=== PATIENT | female | born 1960 | race Caucasian/White ===

== ENCOUNTER 2017-08-25 08:09 | Outpatient (CLI) | payer OTHER ==
--- NOTE | 2017-08-26 16:20 | Mammography Report ---
DIGITAL SCREENING MAMMOGRAM: 08/25/2017 CLINICAL INDICATION: A 56-year-old with family history of breast cancer, for screening. COMPARISON: 03/2016, 10/2013, 05/2010, 06/2008. The patient initially presented on 08/25/2017, and returned on 08/26/2017 for an additional projection due to technical factors. TECHNIQUE: Routine CC and MLO projections were obtained of the breasts. FINDINGS: The breasts demonstrate heterogeneously dense fibroglandular parenchyma bilaterally. Coarse and punctate, typically benign calcifications are present. No suspicious masses, clustered microcalcifications, or regions of architectural distortion are identified. IMPRESSION: BENIGN FINDINGS. RECOMMENDATION: Routine annual screening unless otherwise clinically indicated. BIRADS CATEGORY 2 - BENIGN FINDINGS. STANDARD QUALIFYING STATEMENTS: 1. This examination was reviewed with the aid of Computer-Aided Detection (CAD) . 2. A negative or benign imaging report should not delay biopsy if clinically suspicious findings are present. Consider surgical consultation if warranted. More than 5 % of cancers are not identified by imaging. 3. Dense breasts may obscure an underlying neoplasm. TD: 08/26/2017 16:18 UMANG
== END 2017-08-25 08:10 | disposition home or self-care (01) ==
LOC: DI 08:09
PROVIDERS: ATTEND Family Medicine
DX: Z12.31 Encounter for screening mammogram for malignant neoplasm of breast (principal); Z80.3 Family history of malignant neoplasm of breast
CPT/HCPCS: 77067

== ENCOUNTER 2017-10-09 20:41 | Emergency (ER) | payer OTHER ==
--- NOTE | 2017-10-09 20:46 | ED Physician Documentation ---
PD HPI UPPER EXT INJURY - Stated complaint Stated Complaint: R FINGER INJ - History obtained from History obtained from: Patient - History of Present Illness Location: Right, Finger (right fourth finger (ring finger)) Where injury occurred: Bar Timing - onset: Today Timing - details: Abrupt onset Pain level now: 5 Improved by: Rest Worsened by: Moving, Palpating Associated symptoms: Swelling, Discolored (bruised) Recently seen: Not recently seen - Additonal information Additional information: this afternoon was seated at a bar at a restaurant, was asked to move down a seat and when she did so, the ring on her right ring finger caught on a fixture on the bar, causing sudden pain and swelling of the digit. denies other injury. she is right hand dominant Review of Systems Musculoskeletal: reports: Extremity pain, Extremity swelling Neurologic: denies: Focal weakness, Numbness PD PAST MEDICAL HISTORY - Past Medical History Past Medical History: Yes Cardiovascular: Hypertension - Present Medications Home Medications: Ambulatory Orders Medication Instructions Recorded Confirmed Hydrocodone/Acetaminophen 1 - 2 each PO Q6HR PRN #14 tablet 10/09/17 [Hydrocodon-Acetaminophen 5-325] Lisinopril 10 mg PO DAILY 10/09/17 10/09/17 Omeprazole [PriLOSEC] 20 mg PO DAILY 10/09/17 10/09/17 - Allergies Allergies/Adverse Reactions: Allergies Allergy/AdvReac Type Severity Reaction Status Date / Time No Known Drug Allergies Allergy Verified 10/09/17 20:49 PD ED PE NORMAL - Vitals Vital signs reviewed: Yes - General General: Alert and oriented X 3, No acute distress, Well developed/nourished - Neuro Neuro: No motor deficit, No sensory deficit PD ED PE EXPANDED - Extremities Extremities: Tenderness, Limited ROM, Swelling, Bruising, Other (tenderness, swelling, bruising, limited ROM left fourth (ring) finger at proximal phalanx and PIP joint) Results - Vitals Vitals: Vital Signs - 24 hr 10/09/17 10/09/17 20:43 22:47 Temperature 37.2 C 36.6 C Heart Rate 96 82 Respiratory 16 12 Rate Blood Pressure 172/93 H 171/107 H O2 Saturation 94 100 Oxygen O2 Source Room air - Rads (name of study) right fourth digit xrays Radiology: Prelim report reviewed, See rad report PD MEDICAL DECISION MAKING - ED course Complexity details: reviewed results, re-evaluated patient, considered differential, d/w patient Departure - Departure Disposition: 01 Home, Self Care Clinical Impression: Fracture, finger Condition: Good Instructions: ED Fx Finger Closed Follow-Up: Hugo Fernandez DO [Primary Care Provider] - Fab Morgan MD [Provider Admit Priv/Credential] - Within 1 week Prescriptions: Hydrocodone/Acetaminophen [Hydrocodon-Acetaminophen 5-325] 1 - 2 each PO Q6HR PRN #14 tablet PRN Reason: Pain Discharge Date/Time: 10/09/17 22:53
--- NOTE | 2017-10-09 21:20 | XRAY Preliminary Report ---
Exam: XR FINGER(S) RT IMPRESSION: 1. Acute transverse extra-articular fracture at the base of the right fourth proximal phalanx with mi nimal dorsal angulation. 2. No dislocation. 3. Dorsomedial right hand swelling centered at the fourth MCP joint. [facility] SITE ID: [id number]
--- NOTE | 2017-10-09 21:27 | XRAY Report ---
EXAM: RIGHT FOURTH DIGIT RADIOGRAPHY. EXAM DATE: 10/09/2017 09:06 PM. CLINICAL HISTORY: Right ring finger swollen and discolored. COMPARISON: None. TECHNIQUE: 3 views. FINDINGS: Bones: Acute, extra-articular transverse fracture at the proximal right fourth phalanx metadiaphyseal region with minimal dorsal angulation. The remaining osseous structures are intact and normal. Joints: Normal. No subluxations. Soft Tissues: Dorsal medial right hand swelling centered at the fourth MCP joint. IMPRESSION: 1. Acute transverse extra-articular fracture at the base of the right fourth proximal phalanx with mi nimal dorsal angulation. 2. No dislocation. 3. Dorsomedial right hand swelling centered at the fourth MCP joint. [facility] Referring Provider Line: [phone] SITE ID: [id number]
[2017-10-09] MEDS ORDERED: HYDROcod/ACET 5/325 Prepack 4 PO STA (22:29)
[2017-10-09 22:48] VITALS: BP 171/107
== END 2017-10-09 22:53 | disposition home or self-care (01) ==
LOC: ED 20:41
DX: S62.642A Nondisplaced fracture of proximal phalanx of right middle finger, initial encounter for closed fracture (principal); W23.0XXA Caught, crushed, jammed, or pinched between moving objects, initial encounter; Y92.511 Restaurant or cafe as the place of occurrence of the external cause; I10 Essential (primary) hypertension
CPT/HCPCS: 73140; 99283

== ENCOUNTER 2017-10-26 11:32 | Outpatient (CLI) | payer OTHER ==
--- NOTE | 2017-10-27 09:45 | XRAY Report ---
Procedure Date: 10/26/2017 Accession Number: [id number] / [id number] Procedure: XR - Finger(s) RT CPT Code: FULL RESULT: EXAM: RIGHT FOURTH DIGIT RADIOGRAPHY EXAM DATE: 10/26/2017 12:21 PM. CLINICAL HISTORY: FX R 4TH PHALANX. COMPARISON: None. TECHNIQUE: 3 views. FINDINGS: Bones: Continued fracture healing of the proximal phalangeal base fracture with increased callus formation and less distinct fracture line. No new fractures are seen. Joints: Normal. No subluxations. Soft Tissues: Decreased soft tissue swelling. IMPRESSION: 1. Progressive fracture healing of the fourth proximal phalangeal base fracture without change in alignment. [facility]
== END 2017-10-26 11:33 | disposition home or self-care (01) ==
LOC: DI 11:32
PROVIDERS: ATTEND Family Medicine
DX: S62.614D Displaced fracture of proximal phalanx of right ring finger, subsequent encounter for fracture with routine healing (principal)
CPT/HCPCS: 73140

== ENCOUNTER 2018-02-03 09:26 | Outpatient (CLI) | payer OTHER ==
--- NOTE | 2018-02-03 16:51 | XRAY Report ---
Reason: FOOSH injury January 13, 2018 Procedure Date: 02/03/2018 Accession Number: [id number] / [id number] Procedure: XRN - Wrist 3 View RT CPT Code: FULL RESULT: EXAM: RIGHT WRIST RADIOGRAPHY EXAM DATE: 02/03/2018 09:44 AM. CLINICAL HISTORY: FOOSH injury January 13, 2018. COMPARISON: None. TECHNIQUE: 3 views. FINDINGS: Bones: There is a nondisplaced fracture of the scaphoid Joints: No subluxations. Soft Tissues: No soft tissue swelling. IMPRESSION: Scaphoid fracture [facility]
== END 2018-02-03 09:27 | disposition home or self-care (01) ==
LOC: DI.N 09:26
PROVIDERS: ATTEND Physician Assistant
DX: S62.001A Unspecified fracture of navicular [scaphoid] bone of right wrist, initial encounter for closed fracture (principal)

== ENCOUNTER 2019-03-23 14:03 | Outpatient (CLI) | payer OTHER ==
--- NOTE | 2019-03-24 11:37 | Mammography Report ---
Reason: SCREENING MAMMOGRAM Procedure Date: 03/23/2019 Accession Number: [id number] / [id number] Procedure: SUMANTH - Screening Mammo Dig Bilat CPT Code: Final Report FULL RESULT: EXAM: Screening Mammo Dig Bilat DATE: 03/23/2019 2:33 PM CLINICAL HISTORY: Routine screening. No reported personal history of breast cancer. Family history breast cancer in sister at age 45. TECHNIQUE: (B) - Bilateral CC and MLO views were obtained. COMPARISON: 08/25/2017 through 10/09/2013. PARENCHYMAL PATTERN: (A) - The breasts demonstrate scattered fibroglandular densities bilaterally. FINDINGS: Bilateral breasts: There are no suspicious masses, calcifications, or areas of distortion. IMPRESSION: Negative examination. BI-RADS category 1. RECOMMENDATION: (ANNUAL) - Recommend routine annual screening mammography. BI-RADS CATEGORY: (1) - Negative. STANDARD QUALIFYING STATEMENTS: 1. This examination was not reviewed with the aid of Computer-Aided Detection (CAD). 2. A negative or benign imaging report should not preclude biopsy if clinically suspicious findings are present. 3. Dense breasts may obscure an underlying neoplasm. 4. This examination was reviewed without the aid of 3D breast imaging (tomosynthesis).
== END 2019-03-23 14:04 | disposition home or self-care (01) ==
LOC: DI 14:03
PROVIDERS: ATTEND Family Medicine
DX: Z12.31 Encounter for screening mammogram for malignant neoplasm of breast (principal); Z80.3 Family history of malignant neoplasm of breast
CPT/HCPCS: 77067

== ENCOUNTER 2019-06-29 08:40 | Day surgery (SDC) | payer OTHER ==
[2019-06-29] MEDS ORDERED: LACTATED RINGERS 1,000 ML IV ONE (09:12)
[2019-06-29] MEDS ORDERED: MIDAZOLAM 2 MG/2 ML VIAL IVP ONE (10:21)
[2019-06-29] MEDS ORDERED: fentaNYL 250 MCG/5 ML VIAL IVP ONE (10:21)
[2019-06-29] MEDS ORDERED: fentaNYL 100 MCG/2 ML VIAL IVP ONE (10:21)
[2019-06-29 11:17] VITALS: BP 120/65
== END 2019-06-29 08:41 | disposition home or self-care (01) ==
LOC: SDS 08:40
PROVIDERS: ATTEND Surgery
PROC: 0DBN8ZZ Excision of Sigmoid Colon, Via Natural or Artificial Opening Endoscopic (ICD-10-PCS; 2019-06-29)
PROC: 0DBP8ZZ Excision of Rectum, Via Natural or Artificial Opening Endoscopic (ICD-10-PCS; 2019-06-29)
PROC: 0DBH8ZZ Excision of Cecum, Via Natural or Artificial Opening Endoscopic (ICD-10-PCS; principal; 2019-06-29 10:15)
DX: Z12.11 Encounter for screening for malignant neoplasm of colon (principal); D12.5 Benign neoplasm of sigmoid colon; D12.0 Benign neoplasm of cecum; K62.1 Rectal polyp; K64.8 Other hemorrhoids; K64.4 Residual hemorrhoidal skin tags; K63.89 Other specified diseases of intestine; I10 Essential (primary) hypertension; K21.9 Gastro-esophageal reflux disease without esophagitis
CPT/HCPCS: 45380; J3010; J7120

== ENCOUNTER 2022-03-18 09:18 | Outpatient (CLI) | payer OTHER ==
--- NOTE | 2022-03-18 16:25 | Mammography Report ---
BILATERAL DIGITAL SCREENING MAMMOGRAM 3D/2D: 03/18/2022 CLINICAL: Routine screening. Comparison is made to exams dated: 03/23/2019 mammogram, 08/25/2017 mammogram, 03/10/2016 mammogram, ultrasound, 10/09/2013 mammogram - [facility], and 11/12/2011 mammogram - [facility]. There are scattered areas of fibroglandular density in both breasts (category b / 25%-50% glandular t issue). No significant masses, calcifications, or other findings are seen in either breast. There has been no significant interval change. IMPRESSION: NEGATIVE There is no mammographic evidence of malignancy. A 1 year screening mammogram is recommended. Based on the Tyrer Cuzick model (a risk assessment model) the patients lifetime risk is 11.8% and he r 10 year risk is 5.3%. According to the ACR, ACS, and NCCN guidelines, an annual breast MRI exam vic ng with mammogram is recommended if the patients lifetime risk is 20% or greater. This exam was interpreted at Station ID: [id number]. NOTE: For mammograms, a report in lay terms will be sent to the patient. Approximately 15% of breast malignancies will not be visualized mammographically. In the management of a palpable breast mass, a negative mammogram must not discourage biopsy of a clinically suspicious lesion. Electronically Signed By: Don gaitan/jake:03/18/2022 11:50:00 ACR BI-RADS Category 1: Negative 3341F PARENCHYMAL PATTERN: (A) - The breast(s) demonstrate(s) scattered fibroglandular densities. BI-RADS CATEGORY: (1) - 1 RECOMMENDATION: (ANNUAL) - Recommend routine annual screening mammography. [id number] 1 year screening LATERALITY: (B)
== END 2022-03-18 09:19 | disposition home or self-care (01) ==
LOC: DI.N 09:18
PROVIDERS: ATTEND Family Medicine
DX: Z12.31 Encounter for screening mammogram for malignant neoplasm of breast (principal)

== ENCOUNTER 2022-05-20 12:37 | Outpatient (CLI) | payer OTHER ==
--- NOTE | 2022-05-20 18:51 | XRAY Report ---
PROCEDURE: Shoulder 2 View RT INDICATIONS: RIGHT SHOULDER PAIN TECHNIQUE: 2 views of the shoulder were acquired. COMPARISON: None. FINDINGS: Bones: No fractures or dislocations. No suspicious bony lesions. Visualized ribs appear intact. Soft tissues: No suspicious soft tissue calcifications. IMPRESSION: Normal right shoulder radiographs Reviewed by: Jose Cruz Nice MD on 05/20/2022 5:49 PM [place] Approved by: Jose Cruz Nice MD on 05/20/2022 5:49 PM [place] Station ID: [id number]
== END 2022-05-20 12:38 | disposition home or self-care (01) ==
LOC: DI 12:37
PROVIDERS: ATTEND Student in an Organized Health Care Education/Training Program
DX: M25.511 Pain in right shoulder (principal)

== ENCOUNTER 2023-07-22 10:42 | Emergency (ER) | payer OTHER ==
[2023-07-22 11:17] LABS: BASOPHILS # (AUTO) 0.1 10^3/uL (0.0-0.1); BASOPHILS % (AUTO) 0.9 %; EOSINOPHILS % (AUTO) 0.7 %; HCT - HEMATOCRIT 41.9 % (37.0-47.0); HGB - HEMOGLOBIN 14.2 g/dL (12.0-16.0); LYMPHOCYTES # (AUTO) 1.4 10^3/uL (1.5-3.5); LYMPHOCYTES % (AUTO) 25.1 %; MEAN CORPUSCULAR HEMOGLOBIN 29.6 pg (27.0-31.0); MEAN CORPUSCULAR HGB CONC 33.9 g/dL (32.0-36.0); MEAN CORPUSCULAR VOLUME 87.5 fL (81.0-99.0); MONOCYTES # (AUTO) 0.7 10^3/uL (0.0-1.0); MONOCYTES % (AUTO) 12.5 %; NEUTROPHILS # (AUTO) 3.4 10^3/uL (1.5-6.6); NEUTROPHILS % (AUTO) 60.4 %; PLT - PLATELET COUNT 352 10^3/uL (130-450); RED BLOOD COUNT 4.79 10^6/uL (4.20-5.40); RED CELL DISTRIBUTION WIDTH 12.2 % (12.0-15.0); WHITE BLOOD COUNT 5.5 x10^3/uL (4.8-10.8)
[2023-07-22 11:38] LABS: TROPONIN I HIGH SENSITIVITY < 2.3 ng/L (2.3-14.8)
[2023-07-22 11:56] LABS: ALBUMIN 4.6 g/dL (3.2-5.5); ALBUMIN/GLOBULIN RATIO 2.2 (1.0-2.2); ALKALINE PHOSPHATASE 41 IU/L (42-121); ALT ALANINE AMINOTRANSFERASE 14 IU/L (10-60); AST ASPARTATE AMINOTRANSFERASE 16 IU/L (10-42); BILIRUBIN,TOTAL 0.6 mg/dL (0.2-1.0); BUN - BLOOD UREA NITROGEN 8 mg/dL (6-20); CALCIUM 9.6 mg/dL (8.5-10.3); CARBON DIOXIDE - CO2 25 mmol/L (21-32); CHLORIDE 100 mmol/L (101-111); CREATININE 0.8 mg/dL (0.6-1.3); GFR - MDRD 72 (>89); GLUCOSE 121 mg/dL (74-104); LIPASE 20 U/L (11-82); POTASSIUM 4.4 mmol/L (3.5-4.5); SODIUM 132 mmol/L (135-145); TOTAL PROTEIN 6.7 g/dL (6.4-8.9)
--- NOTE | 2023-07-22 14:21 | CT Report ---
PROCEDURE: Head WO INDICATIONS: headache, L hand intermittent weakness TECHNIQUE: Noncontrast 4.5 mm thick angled axial sections acquired from the foramen magnum to the vertex. For r adiation dose reduction, the following was used: automated exposure control, adjustment of mA and/or kV according to patient size. COMPARISON: None. FINDINGS: Image quality: Excellent. CSF spaces: Basal cisterns are patent. No extra-axial fluid collections. Ventricles are normal in size and shape. Brain: No midline shift. No intracranial masses or hemorrhage. Carcamo-white matter interface is norm al. Mild leukoaraiosis, commonly caused by chronic small vessel ischemic disease. Age-related volume loss. Skull and face: Calvarium and visualized facial bones are intact, without suspicious lesions. Sinuses: Visualized sinuses and mastoids are clear. IMPRESSION: No acute intracranial pathology. Reviewed by: Dilshad Davis MD on 07/22/2023 2:20 PM PDT Approved by: Dilshad Davis MD on 07/22/2023 2:20 PM PDT Station ID: [id number]
[2023-07-22 14:26] VITALS: O2SAT 98
--- NOTE | 2023-07-22 14:42 | ED Physician Documentation ---
History of Present Illness - Stated complaint Stated Complaint: NAUSEA - Chief complaint Chief Complaint: Neuro - History obtained from History obtained from: Patient - Additonal information Additional information: The pt comes to the ED with CC of feeling "off". She has had nausea on and off for the past couple of months, but no vomiting. Several days ago, she had a near-syncopal episode and friends noticed that pt's limbs were "flailing" for a few seconds. No CP or SOB. No h/o seizures. Pt states she has not had an episode like that before or since. She now just has a dull headache 4/10 with slight nausea. She states she has been drinking plenty of water. No new medications. 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 HEENT: Other - Present Medications Home Medications: Ambulatory Orders Medication Instructions Recorded Confirmed Omeprazole [PriLOSEC] 20 mg PO DAILY 10/09/17 07/22/23 lisinopriL [Lisinopril] 10 mg PO DAILY 10/09/17 07/22/23 Estrogen,Con/M-Progest Acet 1 tab PO DAILY 06/28/19 07/22/23 [Prempro 0.3 mg-1.5 mg Tablet] Aspirin Chewable [[place] 81 mg PO DAILY 07/22/23 07/22/23 Aspirin] - Allergies Allergies/Adverse Reactions: Allergies Allergy/AdvReac Type Severity Reaction Status Date / Time Latex, Natural Rubber AdvReac Rash Verified 07/22/23 10:55 - Social History Does the pt smoke?: No Smoking Status: Never smoker Does the pt drink ETOH?: Yes Does the pt have substance abuse?: Yes - Immunizations Immunizations are current?: Yes - POLST Patient has POLST: No PD ED PE NORMAL - Vitals Vital signs reviewed: Yes - General General: Alert and oriented X 3, No acute distress, Well developed/nourished - HEENT HEENT: Atraumatic, PERRL, EOMI, Moist mucous membranes - Neck Neck: Supple, no meningeal sign - Cardiac Cardiac: RRR, No murmur, Strong equal pulses - Respiratory Respiratory: No respiratory distress, Clear bilaterally - Abdomen Abdomen: Soft, Non tender, Non distended - Derm Derm: Normal color, Warm and dry, No rash - Extremities Extremities: No deformity, No edema - Neuro Neuro: Alert and oriented X 3, 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 Relevant findings are: Rate: Rate (enter#) (68) Rhythm: NSR [place]: Normal Intervals: Normal MN QRS: Normal Ischemia: Normal ST segments Compare to prior EKG: Old EKG unavailable Computer interpretation: Agree with computer - Labs Labs: Laboratory Tests 07/22/23 07/22/23 07/22/23 11:11 11:11 11:11 WBC 5.5 RBC 4.79 Hgb 14.2 Hct 41.9 MCV 87.5 MCH 29.6 MCHC 33.9 RDW 12.2 Plt Count 352 MPV 9.0 Neut # (Auto) 3.4 Lymph # (Auto) 1.4 L [place] # (Auto) 0.7 Eos # (Auto) 0.0 Baso # (Auto) 0.1 Absolute Nucleated RBC 0.00 Nucleated RBC % 0.0 Sodium 132 L Potassium 4.4 Chloride 100 L Carbon Dioxide 25 Anion Gap 7.0 BUN 8 Creatinine 0.8 Estimated GFR (MDRD) 72 L Glucose 121 H Calcium 9.6 Total Bilirubin 0.6 AST 16 ALT 14 Alkaline Phosphatase 41 L Troponin I High Sens < 2.3 L Total Protein 6.7 Albumin 4.6 Globulin 2.1 Albumin/Globulin Ratio 2.2 Lipase 20 TSH 1.39 - Rads (name of study) head CT Relevant Findings:: Final report received, See rad report (nad) PD Medical Decision Making - ED course Complexity details: reviewed results, re-evaluated patient, considered differential, d/w patient ED course: The pt was worked up with labs, including CBC, ER abd panel, TSH, and troponin. She was also evaluated with head CT and EKG. The entire work-up was negative. I have d/w pt the need for follow-up with her PCP to discuss event monitoring and stress test. I am not sure what is causing her nausea or feeling of being "off", but we have discussed hydration, nutrition, and the need for close follow-up as an outpatient. We have also discussed the usual indications for return. Departure - Departure Disposition: 01 Home, Self Care Clinical Impression: Weakness Condition: Stable Instructions: ED Weakness UKO Comments: Your laboratory studies and head CT look good today. It is not clear why you have been having fatigue, loss of interest in normal activities, loss of appetite, and strange neurologic symptoms. It is concerning, as pertains to the transient visual changes and eyelid droop and hand weakness, along with the swallowing difficulties, for possible multiple sclerosis. It is important that you follow-up with your primary to discuss whether or not you should be worked up with MRI for this and see a neurologist to further evaluate this possibility. Please continue to work with your primary on your appetite changes and continue your plan to get the endoscopy and colonoscopy. Forms: PCP List Discharge Date/Time: 07/22/23 14:56
[2023-07-22 14:55] VITALS: BP 159/82
== END 2023-07-22 14:56 | disposition home or self-care (01) ==
LOC: ED 10:42
DX: R53.1 Weakness (principal); I10 Essential (primary) hypertension
CPT/HCPCS: 36415; 80053; 83690; 84443; 84484; 85025; 93005; 99283; 99284

== ENCOUNTER 2023-09-09 15:43 | Outpatient (CLI) | payer OTHER ==
--- NOTE | 2023-09-10 16:11 | MRI Report ---
PROCEDURE: MRI brain without contrast INDICATIONS: TRANSIENT NEUROLOGICAL SYMPTOMS TECHNIQUE: Multiplanar multisequential MR images of the brain were obtained without contrast COMPARISON: None FINDINGS: CSF Spaces: Basal cisterns are patent. No extra-axial fluid collections. Ventricles are normal in size and shape. Brain: No intracranial masses or hemorrhage. Carcamo/white matter interface is normal. Brainstem appe ars normal. Diffusion-weighted images shows no evidence of acute infarct. Normal intravascular flow voids are present. Skull and face: Calvarium has normal marrow signal. Orbits appear normal. Sinuses: Sinuses and mastoids are clear. IMPRESSION: Atrophy and mild white matter chronic ischemic change without acute infarct, hemorrhage or mass daquan linares Reviewed by: Jose Cruz Nice MD on 09/10/2023 3:09 PM JULIANA Approved by: Jose Cruz Nice MD on 09/10/2023 3:09 PM JULIANA Station ID: [id number]
== END 2023-09-09 15:44 | disposition home or self-care (01) ==
LOC: DI 15:43
PROVIDERS: ATTEND Family Medicine
DX: R29.90 Unspecified symptoms and signs involving the nervous system (principal)

== ENCOUNTER 2023-10-11 09:13 | Outpatient (CLI) | payer MEDICARE, OTHER ==
[2023-10-11 09:47] LABS: ALBUMIN 4.4 g/dL (3.2-5.5); ALBUMIN/GLOBULIN RATIO 2.1 (1.0-2.2); ALKALINE PHOSPHATASE 43 IU/L (42-121); ALT ALANINE AMINOTRANSFERASE 16 IU/L (10-60); AST ASPARTATE AMINOTRANSFERASE 16 IU/L (10-42); BILIRUBIN,TOTAL 0.4 mg/dL (0.2-1.0); BUN - BLOOD UREA NITROGEN 9 mg/dL (6-20); CALCIUM 9.7 mg/dL (8.5-10.3); CARBON DIOXIDE - CO2 28 mmol/L (21-32); CHLORIDE 103 mmol/L (101-111); CHOL/HDL RATIO 4.2 (<4.4); CHOLESTEROL 254 mg/dL; CREATININE 0.8 mg/dL (0.6-1.3); CRP - C-REACTIVE PROTEIN < 0.5 mg/dL (<0.5); GFR - MDRD 72 (>89); GLUCOSE 95 mg/dL (74-104); HDL CHOLESTEROL 61 mg/dL; LDL CHOLESTEROL,CALCULATED 179 mg/dL; LDL/HDL RATIO 2.9 (<4.4); POTASSIUM 4.5 mmol/L (3.5-4.5); SODIUM 136 mmol/L (135-145); TOTAL PROTEIN 6.5 g/dL (6.4-8.9); TRIGLYCERIDES 70 mg/dL (48-352); VLDL CHOLESTEROL 14 mg/dL
[2023-10-11 10:41] LABS: RHEUMATOID FACTOR NEGATIVE (Negative)
[2023-10-11 12:20] LABS: ESTIMATED AVERAGE GLUCOSE 103 mg/dL (70-100); HEMOGLOBIN A1c% 5.2 % (4.27-6.07)
[2023-10-12 21:10] LABS: CYCLIC CITRULLINATED PEP IGG/A 17 units (0-19)
== END 2023-10-11 09:14 | disposition home or self-care (01) ==
LOC: LAB 09:13
PROVIDERS: ATTEND Family Medicine
DX: I10 Essential (primary) hypertension (principal); F43.10 Post-traumatic stress disorder, unspecified; R29.90 Unspecified symptoms and signs involving the nervous system; M25.50 Pain in unspecified joint
CPT/HCPCS: 36415; 80053; 80061; 83036; 83721; 84443; 86038; 86140; 86200; 86430

== ENCOUNTER 2023-10-13 13:13 | Outpatient (CLI) | payer MEDICARE, OTHER | END 2023-10-13 13:14 | disposition home or self-care (01) | LOC: LAB 13:13 | PROVIDERS: ATTEND Family Medicine | DX: M25.50 Pain in unspecified joint (principal) | CPT/HCPCS: 36415; 85651 ==

== ENCOUNTER 2023-12-02 10:48 | Outpatient (CLI) | payer MEDICARE, OTHER ==
[2023-12-02 11:38] LABS: THYROID STIMULATING HORMONE 2.52 uIU/mL (0.34-5.60)
== END 2023-12-02 10:49 | disposition home or self-care (01) ==
LOC: LAB 10:48
PROVIDERS: ATTEND Nurse Practitioner
DX: N95.1 Menopausal and female climacteric states (principal); R23.2 Flushing
CPT/HCPCS: 36415; 84443